=== PATIENT | female | born 1965 ===

== ENCOUNTER 2016-11-22 10:38 | Emergency (ER) | payer MEDICAID ==
[2016-11-22 10:39] VITALS: BMI 22.4
[2016-11-22 10:47] VITALS: BP 125/83; PULSE 68; RESP 15; TEMP 98.8; O2SAT 99
[2016-11-22] MEDS ORDERED: Ciprofloxacin 0.3% OPTH SOLN OS STA (12:04)
[2016-11-22] MEDS ORDERED: Amoxicillin-Clav 875-125 mg Tab PO STA (12:04)
[2016-11-22] MEDS ORDERED: Amoxicillin-Clav 875-125 mg Tab PO ONE (12:10)
--- NOTE | 2016-11-22 12:15 | C.PDOC ---
History Of Present Illness The patient, a 51 y/o female, presents to the ED for evaluation of swelling under her left eye which was noted around 3 days ago. Patient states the area began with a "small, watery bubble" and then increased in pain and swelling. Patient denies fever, chills vision change, and trauma/injury to the affected area. Time Seen by Provider: 11/22/16 11:24 Chief Complaint (Nursing): ENT Problem History Per: Patient History/Exam Limitations: no limitations Onset/Duration Of Symptoms: Days (3) Current Symptoms Are (Timing): Still Present Injury To Eye?: No Quality: "Pain" Associated Symptoms: Pain, Swelling. denies: Decreased Vision Additional History Per: Patient Past Medical History Reviewed: Historical Data, Nursing Documentation, Vital Signs Vital Signs: Last Vital Signs Temp 98.8 F 11/22/16 10:45 Pulse 68 11/22/16 10:45 Resp 15 11/22/16 10:45 BP 125/83 11/22/16 10:45 Pulse Ox 99 11/22/16 12:23 - Medical History PMH: No Chronic Diseases Surgical History: No Surg Hx Family History: States: Unknown Family Hx - Social History Hx Tobacco Use: No Hx Alcohol Use: No Hx Substance Use: No - Immunization History Hx Tetanus Toxoid Vaccination: No Hx Influenza Vaccination: No Hx Pneumococcal Vaccination: No Review Of Systems Except As Marked, All Systems Reviewed And Found Negative. Eyes: Positive for: Pain (left), Other (+underneath left eye ). Negative for: Vision Change Physical Exam - Physical Exam Appears: Non-toxic, No Acute Distress Skin: Normal Color, Warm, Dry Head: Atraumatic, Normacephalic, No Swelling (periorbital ) Eye(s): bilateral: PERRL, EOMI, right: Normal Inspection, left: Other (+ swelling underneath eye with conjunctival erythema ) Oral Mucosa: Moist Neck: Supple Extremity: Normal ROM Neurological/Psych: Oriented x3, Normal Speech, Normal Cognition Gait: Steady ED Course And Treatment O2 Sat by Pulse Oximetry: 99 (on RA) Pulse Ox Interpretation: Normal Progress Note: Patient received Amoxicillin PO and Ciproflaxin OS. On reassessment, patient is resting comfortably, showing no signs of distress, and reports an improvement in her symptoms. Patient is stable for discharge with Rx and is advised to follow up with low vision therapist within 1-2 days for further evaluation. Reassessment Condition: Improved Disposition - Disposition Referrals: Randy Mccullough MD [Staff Provider] - Disposition: HOME/ ROUTINE Disposition Time: 12:44 Condition: STABLE Additional Instructions: Follow up with Cardiology Specialist within 1-2 days. return to ED if feel worse. Prescriptions: Amoxicillin/Clavulanate [Augmentin 875 MG-125 MG] 1 tab PO BID #14 tab Ciprofloxacin 0.3% [Ciloxan 0.3% Ophth SOLN] 1 drop OS Q2 #1 bottle Instructions: Conjunctivitis (ED) - Clinical Impression Clinical Impression: Conjunctivitis, Periorbital cellulitis - PA / TRAVELING [employer]IAN / Resident Statement MD/DO has reviewed & agrees with the documentation as recorded. - Scribe Statement The provider has reviewed the documentation as recorded by the Scribe (Lamar Starks) All medical record entries made by the Scribe were at my direction and personally dictated by me. I have reviewed the chart and agree that the record accurately reflects my personal performance of the history, physical exam, medical decision making, and the department course for this patient. I have also personally directed, reviewed, and agree with the discharge instructions and disposition.
== END 2016-11-22 12:49 | disposition home or self-care (01) ==
LOC: C.ER 10:38
DX: L03.213 Periorbital cellulitis (principal); H10.9 Unspecified conjunctivitis